=== PATIENT | female | born 1985 | race African-American/Black ===

== ENCOUNTER 2023-12-08 14:14 | Inpatient (IN) ==
[2023-12-08] MEDS: Lactated Ringers 1000 ml BAG 1,000 ML IV ONE ×2 (15:16→17:21)
[2023-12-08] MEDS: Ondansetron 4 mg VIAL 2 MG/ML 2 ml VIAL IV ONE (15:16)
[2023-12-08 15:28] LABS: Hematocrit 34.1 % (35-45); Hemoglobin 11.3 g/dL (11.5-14.3); Mean Corpuscular Hemoglobin 28.6 pg (27-33); Mean Corpuscular Hgb Conc 33.2 g/dL (31-36); Mean Corpuscular Volume 86.1 fL (80-97); Mean Platelet Volume 8.4 fL (7.5-11.2); Platelet Count 357 10^3/uL (150-450); Red Blood Count 3.97 10^6/uL (3.63-4.92); Red Cell Distribution Width 14.7 % (12-17); White Blood Count 18.4 10^3/uL (3.8-11.8)
[2023-12-08 15:33] LABS: INR 1.27 (0.83-1.13)
[2023-12-08] MEDS: Cefepime 2 GM in Dextrose 2 GM/50 ML BAG IV ONE (16:05)
[2023-12-08 16:06] LABS: ABS Basophils 0.1 10^3/uL (0.0-0.1); ABS Eosinophils 0.2 10^3/uL (0.0-0.5); ABS Lymphocytes 2.7 10^3/uL (1.0-4.8); ABS Monocytes 1.6 10^3/uL (0.0-0.9); ABS Neutrophils 13.8 10^3/uL (1.5-7.6); Eosinophil % 0.8 %; Lymphocyte % 14.6 %
[2023-12-08 16:09] LABS: Urine Appearance Clear; Urine Bilirubin Negative (Negative); Urine Blood Negative (Negative); Urine Color Yellow; Urine Glucose Negative (Negative); Urine Ketones Negative (Negative); Urine Nitrite Negative (Negative); Urine Protein 1+ (>=30 mg/dL) (Negative); Urine Specific Gravity 1.028 (1.002-1.030); Urine Urobilinogen Negative (Negative)
[2023-12-08 16:11] LABS: Urine Bacteria Absent /HPF (Absent); Urine Red Blood Cell Trace(0-2/hpf) /HPF (0-Trace); Urine Squamous Epithelial Cell Present /HPF (Absent); Urine White Blood Cell Trace(0-5/hpf) /HPF (0-Trace)
[2023-12-08 16:19] LABS: ALT 36 U/L (7-52); Albumin 3.6 g/dL (3.2-5.2); Albumin/Globulin Ratio 1.3 (1-3); Alkaline Phosphatase 121 U/L (35-149); Anion Gap 9 mmol/L (2-16); Blood Urea Nitrogen 8 mg/dL (6-24); C Reactive Protein 248.19 mg/L (<8.01); CO2 Carbon Dioxide 27 mmol/L (22-32); Chloride 101 mmol/L (101-111); Creatinine, Serum 0.91 mg/dL (0.51-0.95); Globulin 2.8 g/dL (2-4); Glucose 104 mg/dL (70-100); HCG Pregnancy < 0.60 mIU/mL; Lipase 20 U/L (11.0-82.0); Magnesium 1.9 mg/dL (1.9-2.7); Sodium 137 mmol/L (135-145); Total Bilirubin 0.8 mg/dL (0.2-1.0); Total Protein 6.4 g/dL (6.4-8.9); eGFR CKD-EPI 83.8 (>60)
[2023-12-08] MEDS: Iohexol 300 (CONTRAST) 10 ML SDV IV ONE (16:47)
[2023-12-08] MEDS: Iohexol 350 (CONTRAST) 500 ML MDV IV ONE (16:49)
[2023-12-08] MEDS: metroNIDAZOLE IV 500 MG/100ML 500 MG/100 ML BAG IVPB ONE (17:17)
[2023-12-08 18:09] LABS: Potassium Redraw 3.9 mmol/L (3.5-5.0)
[2023-12-08] MEDS ORDERED: HYDROmorphone 1 MG/1 ML SYRINGE IV SLOW PU PRN (18:24)
[2023-12-08] MEDS: Vancomycin 1,500 MG in NS 0.9% 250 ml 250 ML IVPB ONE (18:30)
[2023-12-08] MEDS: metroNIDAZOLE IV 500 MG/100ML 500 MG/100 ML BAG IVPB SCH (22:24)
[2023-12-08] MEDS: D5W 1/2 NS KCl 20 meq 1000 ml 1,000 ML IV SCH (23:34)
[2023-12-09 05:50] LABS: ABS Basophils 0.1 10^3/uL (0.0-0.1); ABS Eosinophils 0.3 10^3/uL (0.0-0.5); ABS Lymphocytes 1.4 10^3/uL (1.0-4.8); ABS Neutrophils 9.2 10^3/uL (1.5-7.6); ABS Nucleated RBC 0.01 10^3/ul; Eosinophil % 2.4 %; Hematocrit 29.9 % (35-45); Hemoglobin 9.7 g/dL (11.5-14.3); Lymphocyte % 11.5 %; Mean Corpuscular Hemoglobin 28.1 pg (27-33); Mean Corpuscular Hgb Conc 32.6 g/dL (31-36); Mean Corpuscular Volume 86.1 fL (80-97); Mean Platelet Volume 8.5 fL (7.5-11.2); Nucleated Red Blood Cells % 0.1 %/100WBC (0.0-0.8); Platelet Count 314 10^3/uL (150-450); Red Blood Count 3.47 10^6/uL (3.63-4.92); Red Cell Distribution Width 14.3 % (12-17); White Blood Count 11.9 10^3/uL (3.8-11.8)
[2023-12-09 06:25] LABS: Albumin 3.2 g/dL (3.2-5.2); Albumin/Globulin Ratio 1.3 (1-3); Calcium 8.2 mg/dL (8.6-10.3); Creatinine, Serum 0.86 mg/dL (0.51-0.95); Globulin 2.4 g/dL (2-4); Potassium 4.1 mmol/L (3.5-5.0); Total Bilirubin 0.8 mg/dL (0.2-1.0); Total Protein 5.6 g/dL (6.4-8.9); eGFR CKD-EPI 89.7 (>60)
[2023-12-09] MEDS: Ondansetron 4 mg VIAL 2 MG/ML 2 ml VIAL IV PRN (14:19)
[2023-12-09] MEDS ORDERED: Midazolam 2 mg/2 ml VIAL 1 mg/ml 2 ml VIAL (2 mg) ONE ×2 (15:10→17:57)
[2023-12-09] MEDS ORDERED: Lidocaine 2% PF 5 ML VIAL ONE ×2 (15:10→17:57)
[2023-12-09] MEDS ORDERED: Propofol 10 MG/ML 20 ML BTL ONE ×2 (15:10→17:57)
[2023-12-09] MEDS ORDERED: Ondansetron 4 mg VIAL 2 MG/ML 2 ml VIAL ONE ×3 (15:10→20:51)
[2023-12-09] MEDS ORDERED: fentaNYL 100 mcg/2 ml 50 MCG/ML VIAL ONE ×4 (15:10→20:53)
[2023-12-09] MEDS ORDERED: Scopolamine 1 mg/72hr PATCH ONE (15:16)
[2023-12-09] MEDS ORDERED: Rocuronium 50 mg VIAL 10 mg/ml 5 ml VIAL (50 mg) ONE ×3 (16:20→20:06)
[2023-12-09] MEDS ORDERED: Ondansetron 4 mg VIAL 2 MG/ML 2 ml VIAL IV PRN (16:34)
[2023-12-09] MEDS ORDERED: Naloxone 0.4 mg VIAL 0.4 mg/ml 1 ml VIAL IV PRN (16:34)
[2023-12-09] MEDS ORDERED: Dexamethasone IV 4 MG/ML VIAL 1 ml VIAL ONE (17:57)
[2023-12-09] MEDS ORDERED: Bupivacaine 0.25% SDV 30 ML ONE (18:13)
[2023-12-09] MEDS ORDERED: Bupivacaine 0.25% EPI 200,000 30 ML SDV ONE (18:13)
[2023-12-09] MEDS ORDERED: Calcium Carb (TUMS) 500 mg CHEW TAB PO PRN (20:38)
[2023-12-09] MEDS: fentaNYL 100 mcg/2 ml 50 MCG/ML VIAL IV PRN (20:55)
[2023-12-09] MEDS ORDERED: Metoclopramide 5 MG/ML VIAL (10 mg) ONE (21:07)
[2023-12-09] MEDS: Metoclopramide 5 MG/ML VIAL (10 mg) IV PRN (21:09)
[2023-12-09] MEDS ORDERED: Metoclopramide 5 MG/ML VIAL (10 mg) IV PRN (21:21)
[2023-12-09] MEDS: HYDROmorphone 0.5 MG/0.5 ML SYRINGE IV SLOW PU PRN (22:32)
[2023-12-09] MEDS: Buffered Lidocaine 1% SYRIN 1 ml INTRADERM ONE (22:59)
[2023-12-09] MEDS: Scopolamine 1 mg/72hr PATCH TRANSDERM ONE (23:00)
[2023-12-09] MEDS: Lactated Ringers 1000 ml BAG 1,000 ML IV SCH (23:00)
[2023-12-09] MEDS: metroNIDAZOLE IV 500 MG/100ML 500 MG/100 ML BAG IVPB SCH (23:42)
[2023-12-10 12:52] LABS: ABS Basophils 0.1 10^3/uL (0.0-0.1); ABS Lymphocytes 1.7 10^3/uL (1.0-4.8); ABS Neutrophils 11.6 10^3/uL (1.5-7.6); Eosinophil % 0.1 %; Hematocrit 34.4 % (35-45); Hemoglobin 11.5 g/dL (11.5-14.3); Lymphocyte % 11.7 %; Mean Corpuscular Hemoglobin 28.7 pg (27-33); Mean Corpuscular Hgb Conc 33.4 g/dL (31-36); Mean Platelet Volume 8.2 fL (7.5-11.2); Platelet Count 374 10^3/uL (150-450); Red Cell Distribution Width 14.7 % (12-17); White Blood Count 14.4 10^3/uL (3.8-11.8)
[2023-12-10 14:55] LABS: Albumin 3.4 g/dL (3.2-5.2); Albumin/Globulin Ratio 1.2 (1-3); Calcium 8.8 mg/dL (8.6-10.3); Creatinine, Serum 0.86 mg/dL (0.51-0.95); Globulin 2.8 g/dL (2-4); Potassium 4.5 mmol/L (3.5-5.0); Total Bilirubin 0.6 mg/dL (0.2-1.0); Total Protein 6.2 g/dL (6.4-8.9); eGFR CKD-EPI 89.7 (>60)
[2023-12-10] MEDS: D5W 1/2 NS KCl 20 meq 1000 ml 1,000 ML IV SCH (18:21)
[2023-12-11 10:22] VITALS: BP 116/74
== END 2023-12-11 13:05 | disposition short-term general hospital (02) | DRG 263 ==
LOC: ED 14:14 → EDHOLD 14:14 → AA 12-09 14:17 → SSU 12-09 21:50
PROVIDERS: ADMIT Surgery; ATTEND Surgery